=== PATIENT | male | born 1955 | race Caucasian/White ===

== ENCOUNTER 2021-09-09 01:03 | Emergency (ER) | payer MEDICARE, SELFPAY ==
--- NOTE | ~2021-09-09 | XR_ITS ---
XR chest 1V portable DATE: 09/09/2021 01:32 INDICATION: Chest pain. New onset of shortness of breath. Smoker. TECHNIQUE: Portable upright AP chest on 09/09/2021 0119 hours COMPARISON: 06/28/2018 portable AP chest at 2050 hours FINDINGS: Bilateral hyperinflation and flattening the diaphragm, consistent with COPD. No pulmonary infiltrate or consolidation is evident. No pleural effusion or pulmonary vascular conges tion or pneumothorax. Borderline heart size. Status post sternotomy and 2 cardiac valve replacements. Aortic arch calcifica tion. Diffuse osteopenia. IMPRESSION: Bilateral hyperinflation consistent with COPD Status post sternotomy and 2 cardiac valve replacements Borderline heart size Aortic calcification Reviewed, dictated and finalized at location A. R CREW MEMBER
[2021-09-09 00:58] VITALS: BP 106/80; PULSE 105; RESP 22; TEMP 36.2; O2SAT 97
--- NOTE | 2021-09-09 01:20 | ED.SOB ---
HPI - SOB/Dyspnea General Chief Complaint: Shortness of Breath/Dyspnea Stated Complaint: DIFFICULTY BREATHING COPD HX ALB 5 X Time Seen by Provider: 09/09/21 01:07 Source: patient Mode of arrival: ambulatory Limitations: no limitations History of Present Illness HPI Narrative: Patient is a 65-year-old male complaining of shortness of breath that started tonight. Patient has a history of COPD. Patient denies any chest pain, abdominal pain, nausea, vomiting, diaphoresis, fever or chills. Related Data Home Medications Medication Instructions Recorded Confirmed albuterol sulfate 90 mcg/actuation 2 inhalation INHALATION Q6H PRN 04/16/20 breath activated powder inhaler budesonide-formoterol HFA 160 2 puff INHALATION Q12H 04/16/20 mcg-4.5 mcg/actuation aerosol inhaler ergocalciferol (vitamin D2) 1,250 1,250 mcg PO WEEKLY 04/16/20 mcg (50,000 unit) capsule lisinopril 20 mg tablet 20 mg PO DAILY 04/16/20 oxycodone-acetaminophen 5 mg-325 1 tablet PO Q6H PRN 04/16/20 mg tablet tamsulosin 0.4 mg capsule 0.4 mg PO DAILY 04/16/20 tiotropium bromide 2.5 2 puff INHALATION QAM 04/16/20 mcg/actuation mist for inhalation vitamin B12 500 mcg-folic acid 400 1 tablet PO DAILY 04/16/20 mcg tablet warfarin 3 mg tablet 3 mg PO DAILY 04/16/20 warfarin 4 mg tablet 4 mg PO QTUTHSASU 04/16/20 Allergies Allergy/AdvReac Type Severity Reaction Status Date / Time aspirin Allergy Mild he cannot Verified 09/09/21 01:09 take because of blood thinners Review of Systems Review of Systems: All systems reviewed & are unremarkable except as noted in HPI and below Constitutional: Constitutional: Denies body ache(s), Denies chills, Denies excessive sweating, Denies fatigue, Denies fever(s), Denies headache(s), Denies lethargy, Denies malaise, Denies weakness and Denies weight loss Eyes: Eyes: Denies blurry vision, Denies change in vision and Denies loss of vision ENT: Denies dizziness, Denies ear discharge, Denies headache(s), Denies lip swelling, Denies epistaxis, Denies nasal congestion, Denies neck pain, Denies throat swelling and Denies tongue swelling Cardiovascular: Cardiovascular: Denies chest pain, Denies chest pain at rest, Denies chest pain with activity, Denies diaphoresis, Denies rapid heart rate, Denies edema, Denies irregular heart rhythm, Denies lightheadedness and Denies palpitations Respiratory: Respiratory: Denies chest congestion and Denies hemoptysis Gastrointestinal: Gastrointestinal: Denies abdominal pain, Denies melena, Denies hematochezia, Denies diarrhea, Denies nausea, Denies vomiting and Denies hematemesis Musculoskeletal: Musculoskeletal: Denies abnormal gait, Denies deformity, Denies joint swelling, Denies limited range of motion, Denies neck pain and Denies numbness Neurologic: Denies Abnormal speech present, Denies abnormal gait, Denies confusion, Denies dizziness, Denies headache(s), Denies focal weakness, Denies loss of vision, Denies numbness, Denies Other visual disturbances, Denies Sensory deficit (Neuro) and Denies weakness Psychiatric: Psychiatric: Denies confusion, Denies depression, Denies auditory hallucinations, Denies homicidal ideation and Denies suicidal ideation Endocrine: Endocrine: Denies cold intolerance, Denies excessive sweating, Denies fatigue, Denies heat intolerance and Denies palpitations Hematologic/Lymphatic: Hematologic/Lymphatic: Denies easy bleeding and Denies easy bruising Allergic/Immunologic: Allergic/Immunologic: Denies lip swelling, Denies throat swelling and Denies tongue swelling PMFSH Comments Past medical history: COPD, aortic valve replacement, hypertension Family history: Hypertension Social history: Positive for smoker, no EtOH or drug use Exam Const: General: alert Orientation/consciousness: patient oriented x3 Limitations: no limitations Other: Moderate distress, thin, frail HENMT: Head: normal to inspection, normocephalic and atr
[2021-09-09] MEDS: IPRATROPIUM BR 0.02% INH SOLN 0.5 MG/2.5 ML VIAL INHALATION (01:44)
[2021-09-09] MEDS: ALBUTEROL SULFATE NEB 2.5 MG/0.5 ML INH 5 MG INHALATION (01:44)
[2021-09-09 01:45] VITALS: O2SAT 94
[2021-09-09 01:52] LABS: Basophils Percent Auto 0.5 % (0.2-1.2); Eosinophils Absolute Auto 0.1 K/mm3 (0-0.3); Hematocrit 36.8 % (42.0-52.0); Hemoglobin 12.7 g/dL (14.0-18.0); Immature Granulocyte Absolute 0.03 K/mm3 (0.00-0.031); Immature Granulocyte Percent A 0.4 % (0-0.5); Lymphocytes Absolute Auto 0.78 K/mm3 (0.9-3.2); Lymphocytes Percent Auto 9.9 % (18.3-44.2); Mean Corpuscular HGB Conc 34.5 g/dl (32-36); Mean Corpuscular Hemoglobin 30.8 pg (26-34); Mean Corpuscular Volume 89.3 fl (80-100); Mean Platelet Volume 9.1 fl (7.4-10.4); Monocytes Absolute Auto 0.7 K/mm3 (0.1-0.6); Monocytes Percent Auto 8.6 % (2.6-8.5); Neutrophils Absolute Auto 6.3 K/mm3 (1.3-6.7); Neutrophils Percent Auto 79.6 % (45.5-73.1); Platelet Count Result 198 k/mm3 (150-375); Red Blood Count 4.12 M/mm3 (4.6-6.20); White Blood Count 7.9 K/mm3 (4.5-10.0)
[2021-09-09 01:56] VITALS: PULSE 95; RESP 23
[2021-09-09 02:02] LABS: INR 3.1
[2021-09-09 02:05] LABS: Alveolar/Arterial O2 Gradient 44.8 mmHg; Base Excess ABG -1.9 mEq/l (+/-2.0); Carboxyhemoglobin 3.1 % THb (0-2.0); Fractional Inspired Oxygen 21 %; HCO3 ABG 22.1 mEq/l (22.0-26.0); Methemoglobin ABG 0.2 %THb (0-1.5); Oxygen Content ABG 16.7 %vol (16.0-22.0); Oxygen Saturation ABG 92.4 % (95.0-100.0); PCO2 ABG 35.5 mmHg (35.0-45.0); PO2 ABG 62.4 mmHg (80.0-100.0); PO2 FiO2 Ratio Arterial Blood 2.97 %; Reduced Hemoglobin 8.8 %THb (0-5.0); Total Hemoglobin 13.5 g/dL (12.0-18.0); pH ABG 7.412 (7.350-7.450)
[2021-09-09 02:06] VITALS: PULSE 81; RESP 23
[2021-09-09 02:06] LABS: Device ROOM AIR; Modified Allen's Test Pass; Oxyhemoglobin 87.9 % THb (90.0-100.0); Site Drawn RIGHT RADIAL
[2021-09-09 02:07] LABS: Alanine Aminotransferase 21 U/L (4-50); Albumin Level 4.5 g/dL (3.5-5.1); Alkaline Phosphatase 116 U/L (38-126); Anion Gap 11 mmol/L (8-16); Aspartate Amino Transferase 48 U/L (17-59); Bilirubin,Total 0.8 mg/dL (0.2-1.3); Blood Urea Nitrogen 8 mg/dL (9-20); Carbon Dioxide 24 mmol/L (22-30); Chloride 91 mmol/L (98-107); Estimated Glomerular Filt Rate > 60; Glucose 118 mg/dL (65-110); Potassium 3.5 mmol/L (3.4-5.0); Sodium 126 mmol/L (137-145)
[2021-09-09 02:14] LABS: NT Pro B Type Natriuretic Pept 2180 pg/mL (5-100)
[2021-09-09 02:18] LABS: Troponin I < 0.012 ng/mL (0.000-0.034)
--- NOTE | 2021-09-09 03:00 | ECG_ITS ---
Measurements Intervals [place] Rate: 91 P: [place]: 0 QRS: 88 QRSD: 109 T: 11 QT: 409 QTc: 506 Interpretive Statements ATRIAL FIBRILLATION BORDERLINE ST-T WAVE ABNORMALITY- INFERIOR LEADS BASELINE ARTIFACT- I, II, III, AVR, AVL, AVF, V1-V6 ABNORMAL ECG Electronically Signed On 09-09-2021 6:28:50 SAND MIXER OPERATOR by Sanjay Guevara D.O.
[2021-09-09 04:04] VITALS: BP 101/68; PULSE 88; RESP 17; O2SAT 92
== END 2021-09-09 03:55 | disposition home or self-care (01) ==
PROVIDERS: Emergency Provider Emergency Medicine; PCP Family Medicine
DX: J44.1 Chronic obstructive pulmonary disease with (acute) exacerbation (principal); I10 Essential (primary) hypertension; Z95.2 Presence of prosthetic heart valve; Z79.01 Long term (current) use of anticoagulants; I48.91 Unspecified atrial fibrillation; R94.31 Abnormal electrocardiogram [ECG] [EKG]
CPT/HCPCS: 36415; 36600; 71045; 80053; 82375; 82805; 83050; 83880; 84484; 85025; 85610; 85730; 87804; 93005; 94640; 96374; 99284; J1100

== ENCOUNTER 2021-09-23 06:30 | Emergency (ER) | payer MEDICARE, SELFPAY ==
[2021-09-23] VITALS (45 sets, daily range): BP systolic 85–113; BP diastolic 55–91; PULSE 97–139; RESP 15–35; TEMP 36.2–36.4; O2SAT 94–100
--- NOTE | ~2021-09-23 | XR_ITS ---
XR chest 1V portable DATE: 09/23/2021 07:45 INDICATION: Shortness of breath. History of COPD. TECHNIQUE: Portable upright AP chest COMPARISON: 09/09/2021 portable AP chest FINDINGS: Status post sternotomy and multiple cardiac valve replacements. There is pulmonary vascular congestion and redistribution. There are Monica B-lines and mild prominen ce of the minor fissure suggesting pulmonary interstitial and subpleural edema. Bilateral hyperinflation with relative flattening the diaphragm consistent with clinical diagnosis of COPD. No pleural effusion or pneumothorax is evident. Aortic calcification. Diffuse osteopenia. IMPRESSION: Pulmonary vascular congestion and pulmonary interstitial and subpleural edema Bilateral hyperinflation consistent with COPD Reviewed, dictated and finalized at location A. OYEE'S REPRESENTATIVE IMPRESSION: Pulmonary vascular congestion and pulmonary interstitial and subple ural edema Bilateral hyperinflation consistent with COPD
--- NOTE | 2021-09-23 06:41 | ECG_ITS ---
Measurements Intervals [place] Rate: 126 P: [place]: 0 QRS: 83 QRSD: 103 T: -35 QT: 304 QTc: 441 Interpretive Statements ATRIAL FIBRILLATION WITH RAPID VENTRICULAR RESPONSE VENTRICULAR COUPLET AND VENTRICULAR PREMATURE COMPLEX BORDERLINE ST-T WAVE ABNORMALITY- INFERIOR LEADS ABNORMAL ECG Electronically Signed On 09-23-2021 7:25:43 NURSE PRACTICAL by Sanjay Guevara D.O.
[2021-09-23] MEDS: SODIUM CHLORIDE 0.9% IV 1,000 ML 999 ML IV CONT (07:02)
[2021-09-23 07:10] LABS: Basophils Percent Auto 0.3 % (0.2-1.2); Eosinophils Absolute Auto 0.1 K/mm3 (0-0.3); Eosinophils Percent Auto 0.5 % (0-4.4); Hematocrit 36.5 % (42.0-52.0); Hemoglobin 12.6 g/dL (14.0-18.0); Immature Granulocyte Percent A 0.7 % (0-0.5); Lymphocytes Percent Auto 4.1 % (18.3-44.2); Mean Corpuscular HGB Conc 34.5 g/dl (32-36); Mean Corpuscular Hemoglobin 31.1 pg (26-34); Mean Corpuscular Volume 90.1 fl (80-100); Mean Platelet Volume 9.2 fl (7.4-10.4); Monocytes Absolute Auto 1.1 K/mm3 (0.1-0.6); Monocytes Percent Auto 7.2 % (2.6-8.5); Neutrophils Absolute Auto 12.9 K/mm3 (1.3-6.7); Neutrophils Percent Auto 87.2 % (45.5-73.1); Platelet Count Result 218 k/mm3 (150-375); Red Blood Count 4.05 M/mm3 (4.6-6.20); Red Cell Distribution Width 12.7 % (11.5-14.5); White Blood Count 14.8 K/mm3 (4.5-10.0)
--- NOTE | 2021-09-23 07:13 | ED.GENADULT ---
HPI - General Adult General Chief complaint: Shortness of Breath/Dyspnea Stated complaint: SOB Time Seen by Provider: 09/23/21 06:52 Source: patient, family and RN notes reviewed Limitations: no limitations History of Present Illness HPI narrative: 65-year-old male with history of COPD presents to the emergency department complaining of worsening shortness of breath. Patient states that last night he suspects that he slept too low in his chair and he woke up lying flat which worsened his shortness of breath. Patient does not appear to be in any shortness of breath. Patient states that he feels significantly improved compared to when he was at home. Patient does have a cough that he states is at his baseline. Patient does have a hoarse voice which he states is at his baseline. Patient states he has been compliant with his medications recently. Patient denies missing any doses. Patient states that his Lasix prescription was set to run out later this week but he already called the pharmacy and has a refill pending. Related Data Home Medications Medication Instructions Recorded Confirmed albuterol sulfate 90 mcg/actuation See Rx Instructions .ROUTE 04/16/20 breath activated powder inhaler .COMPLEX PRN budesonide-formoterol HFA 160 2 puff INHALATION Q12H 04/16/20 mcg-4.5 mcg/actuation aerosol inhaler oxycodone-acetaminophen 5 mg-325 1 tablet PO DAILY PRN 04/16/20 mg tablet tamsulosin 0.4 mg capsule 0.4 mg PO DAILY 04/16/20 tiotropium bromide 2.5 2 puff INHALATION QAM 04/16/20 mcg/actuation mist for inhalation vitamin B12 500 mcg-folic acid 400 1 tablet PO DAILY 04/16/20 mcg tablet warfarin 3 mg tablet 3 mg PO DAILY 04/16/20 warfarin 4 mg tablet 4 mg PO QTUTHSASU 04/16/20 diltiazem HCl [Cardizem CD] 240 mg PO HS 09/23/21 furosemide 20 mg PO BID 09/23/21 lisinopril 5 mg PO DAILY 09/23/21 magnesium oxide 400 mg PO DAILY 09/23/21 metoprolol succinate 100 mg PO HS 09/23/21 09/23/21 prednisone 40 mg PO DAILY 09/23/21 Allergies Allergy/AdvReac Type Severity Reaction Status Date / Time aspirin Allergy Mild he cannot Verified 09/23/21 06:43 take because of blood thinners Review of Systems Review of Systems: CONSTITUTIONAL: Denies fever, chills, or sweats. EYES: Denies visual changes, redness, or discharge. ENT: Denies rhinorrhea, congestion, sore throat, or otalgia. CARDIOVASCULAR: Denies chest pain, palpitations, or edema. RESPIRATORY: Cough and shortness of breath, was worse at home but now he states he is close to his baseline. GASTROINTESTINAL: Denies abdominal pain, nausea, vomiting, or diarrhea. GENITOURINARY: Denies dysuria or hematuria. SKIN: Denies rash or itching. MUSCULOSKELETAL: Denies back pain, joint pain, or myalgia. NEUROLOGIC: Denies headache, numbness, or weakness. PSYCHIATRIC: Denies anxiety or depression. Exam Narrative: APPEARANCE: Well appearing, no pain, no distress, well-nourished. HEAD: normocephalic, atraumatic. EYES: PERRLA/EOMI, conjunctivae clear. NOSE: Normal no drainage THROAT: Pharynx clear, no exudate. NECK: Supple. No adenopathy, no masses. RESPIRATORY: Wheeze and rhonchi bilaterally CARDIOVASCULAR: Tachycardic and rhythm without murmurs rubs or gallops. ABDOMINAL: Soft, nontender, nondistended, normal bowel sounds MUSCULOSKELETAL: Moves all extremities. Strength/ROM intact, bilateral edema, No calf tenderness. NEURO: Alert. Cranial nerves II through XII intact. Good gait. Good coordination SKIN: Warm, dry. Normal Color Course Course Emergency Course: 65-year-old male history of COPD presented to the emergency department for evaluation of shortness of breath. Patient is tachycardic into the mid 120s after his breathing treatments. Patient states he does feel improved. Patient is resting comfortably in time. Patient was updated on the plan for labs. Given patient a liter of normal saline to help with tachycardia. Patient's BNP came back elevat
[2021-09-23 07:27] LABS: Partial Thromboplastin Time 56.4 SECONDS (22.3-36.8); Prothrombin Time 45.3 Seconds (11.1-14.7)
[2021-09-23 07:29] LABS: NT Pro B Type Natriuretic Pept 1920 pg/mL (5-100)
--- NOTE | 2021-09-23 07:39 | PCRCNOTE ---
Attempt ABG three times. Unable to obtain specimen. Physician notified.
[2021-09-23 07:48] LABS: Alanine Aminotransferase 23 U/L (4-50); Albumin Level 3.9 g/dL (3.5-5.1); Alkaline Phosphatase 142 U/L (38-126); Anion Gap 6 mmol/L (8-16); Aspartate Amino Transferase 44 U/L (17-59); Bilirubin,Total 0.9 mg/dL (0.2-1.3); Blood Urea Nitrogen 12 mg/dL (9-20); Calcium 8.6 mg/dL (8.4-10.2); Carbon Dioxide 27 mmol/L (22-30); Chloride 95 mmol/L (98-107); Estimated Glomerular Filt Rate > 60; Glucose 118 mg/dL (65-110); Magnesium 1.8 mg/dL (1.6-2.3); Potassium 4.3 mmol/L (3.4-5.0); Sodium 128 mmol/L (137-145)
[2021-09-23] MEDS: methylPREDNISolone SOD SUCC 125 MG VIAL IV PUSH (07:48)
[2021-09-23 07:50] LABS: INR 5.1
[2021-09-23] MEDS: FUROSEMIDE INJ 40 MG/4 ML VIAL IV PUSH (08:57)
[2021-09-23] MEDS: METOPROLOL SUCCINATE EXT REL 100 MG TABCR PO (08:57)
[2021-09-23 09:55] LABS: SARS-CoV-2 RNA PCR Negative
== END 2021-09-23 12:10 | disposition home or self-care (01) ==
PROVIDERS: General Practice; Emergency Provider Emergency Medicine; PCP Family Medicine
DX: R06.00 Dyspnea, unspecified (principal); E87.70 Fluid overload, unspecified; Z20.822 Contact with and (suspected) exposure to COVID-19; J44.9 Chronic obstructive pulmonary disease, unspecified; Z79.01 Long term (current) use of anticoagulants
CPT/HCPCS: 36415; 71045; 80053; 83735; 83880; 85025; 85610; 85730; 87040; 93005; 96361; 96374; 96375; 99284; A9270; C9803; J1940; J2930; J7030; U0003; U0005

== ENCOUNTER 2021-09-25 21:29 | Inpatient (IN) | payer MEDICARE, SELFPAY ==
[2021-09-25] VITALS (17 sets, daily range): BP systolic 90–110; BP diastolic 51–85; PULSE 89–165; RESP 22–35; TEMP 37.1; O2SAT 94–98
--- NOTE | ~2021-09-25 | XR_ITS ---
EXAMINATION: XR chest 1V portable EXAM DATE: 09/29/2021 06:08 INDICATION: SOB TECHNIQUE: Portable AP frontal chest x-ray was obtained. Comparison is made to prior examination from 09/25/2021. FINDINGS: Sternotomy wires are present without findings to suggest sternal dehiscence. Cardiac valve replacement, probably the aortic valve. The lungs are hyperinflated which can be seen with chronic ob structive pulmonary disease (a clinical diagnosis of functional impairment), but is not diagnostic of it. Cardiac silhouette is enlarged but stable in size compared to prior exam. There is pulmonary vas cular congestion. There is indistinct reticulation with a bibasal predominance which may indicate pul monary edema. There is aortic arteriosclerosis. Dense mitral annular calcifications. IMPRESSION: 1. Cardiomegaly, congestion, possible mild pulmonary edema. 2. Chronic hyperinflation. Reviewed, dictated and finalized at location A. CHECKER
--- NOTE | ~2021-09-25 | XR_ITS ---
EXAMINATION: XR chest 1V portable INDICATION: Cough and shortness of breath TECHNIQUE: Portable AP chest at 2144 hours COMPARISON: 09/23/2021 FINDINGS: Cardiomegaly is noted. There are changes of cardiac valve surgery. A mild diffuse interstit ial pattern is present. There is no pleural effusion or pneumothorax. IMPRESSION: 1. Cardiomegaly with mild pulmonary edema. Reviewed, dictated and finalized at location F. E MILL MILL HAND
--- NOTE | 2021-09-25 21:38 | ECG_ITS ---
Measurements Intervals [place] Rate: 127 P: [place]: 0 QRS: 75 QRSD: 96 T: -58 QT: 305 QTc: 445 Interpretive Statements ATRIAL FIBRILLATION WITH RAPID VENTRICULAR RESPONSE VENTRICULAR TRIPLET MINIMAL Q WAVES- INFERIOR LEADS ST-T WAVE ABNORMALITY IN INFERIOR LEADS- CONSIDER ISCHEMIA BASELINE ARTIFACT- I, II, III, AVR, AVL, AVF ABNORMAL ECG Electronically Signed On 09-26-2021 20:14:23 ON CALL PHARMACY TECHNICIAN by Sanjay Guevara D.O.
--- NOTE | 2021-09-25 21:58 | ED.SOB ---
HPI - SOB/Dyspnea General Chief Complaint: Shortness of Breath/Dyspnea Stated Complaint: dyspnea Time Seen by Provider: 09/25/21 21:37 Source: RN notes reviewed History of Present Illness HPI Narrative: Patient presents emergency department from home via EMS for shortness of breath. Patient states symptoms began proximally 45 minutes prior to arrival and he states he became more severely short of breath states that time he took a total of 4 of his breathing treatments at home states he has a history of COPD as well as A. fib and CHF and is on Coumadin he states he has had a cough this been nonproductive he denies any fevers or chills chest pain abdominal pain or any other symptoms Related Data Home Medications Medication Instructions Recorded Confirmed albuterol sulfate 90 mcg/actuation See Rx Instructions .ROUTE 04/16/20 breath activated powder inhaler .COMPLEX PRN budesonide-formoterol HFA 160 2 puff INHALATION Q12H 04/16/20 mcg-4.5 mcg/actuation aerosol inhaler oxycodone-acetaminophen 5 mg-325 1 tablet PO DAILY PRN 04/16/20 mg tablet tamsulosin 0.4 mg capsule 0.4 mg PO DAILY 04/16/20 tiotropium bromide 2.5 2 puff INHALATION QAM 04/16/20 mcg/actuation mist for inhalation vitamin B12 500 mcg-folic acid 400 1 tablet PO DAILY 04/16/20 mcg tablet warfarin 3 mg tablet 3 mg PO DAILY 04/16/20 warfarin 4 mg tablet 4 mg PO QTUTHSASU 04/16/20 diltiazem HCl [Cardizem CD] 240 mg PO HS 09/23/21 furosemide 20 mg PO BID 09/23/21 lisinopril 5 mg PO DAILY 09/23/21 magnesium oxide 400 mg PO DAILY 09/23/21 metoprolol succinate 100 mg PO HS 09/23/21 09/23/21 prednisone 40 mg PO DAILY 09/23/21 Allergies Allergy/AdvReac Type Severity Reaction Status Date / Time aspirin Allergy Mild he cannot Verified 09/25/21 21:39 take because of blood thinners Review of Systems Review of Systems: Gen.: Denies fevers or chills ENT: Denies congestion Respiratory: See HPI CV: Denies chest pain or palpitations GI: Denies abdominal pain nausea, emesis or diarrhea Musculoskeletal: Denies back pain or muscle pain Neuro: Denies numbness, tingling, weakness or focal weakness Skin: Denies rash Except as documented, all other systems reviewed and negative [facility] Past Medical History Medical History (Updated 09/25/21 @ 23:31 by Ritesh Landin DO) Atrial fibrillation COPD (chronic obstructive pulmonary disease) Social History Social History (Updated 09/25/21 @ 23:21 by Ritesh Landin DO) Smoking status: Former smoker Exam Narrative: APPEARANCE: Moderate respiratory distress sitting upright in bed EYES: EOMI HEENT: Normocephalic, atraumatic, OMM RESPIRATORY: Moderate respiratory distress sitting upright in bed speaking in short phrases wheezing throughout the bilateral lung sinha CARDIOVASCULAR: Tachycardic and regular ABDOMINAL: Soft, nontender, nondistended, no rebound or guarding MUSCULOSKELETAl: Moves all extremities. No clubbing, cyanosis or edema. NEURO: Awake and alert. Following commands, speech normal, no focal deficits SKIN:: Warm, dry. No rashes lesions or abrasions PSYCHIATRIC: Normal affect/mood, Course Course Emergency Course: Reviewed old records the patient has been seen twice this month for similar complaints patient was here 2 days ago he received Solu-Medrol that time Patient's breathing has improved started on Cardizem for his atrial fibrillation he states he did take all of his medications today Called discussed with Dr. Bentley agrees with consult recommends patient receive vitamin K 2.5 mg at this time Discussed with Dr. Tolentino presentation work-up agrees with admission at this time Discussed with patient and family results of workup and diagnosis. Discussed need for admission. Patient and family understand and agree to current treatment plan Vital Signs Vital signs: Vital Signs Temperature 98.7 F 09/25/21 21:29 Pulse Rate 127 H 09/25/21 21:29 Respiratory
[2021-09-25 21:59] LABS: Basophils Percent Auto 0.2 % (0.2-1.2); Eosinophils Percent Auto 0.2 % (0-4.4); Hematocrit 34.7 % (42.0-52.0); Hemoglobin 11.8 g/dL (14.0-18.0); Immature Granulocyte Absolute 0.11 K/mm3 (0.00-0.031); Immature Granulocyte Percent A 0.7 % (0-0.5); Lymphocytes Absolute Auto 0.95 K/mm3 (0.9-3.2); Lymphocytes Percent Auto 5.9 % (18.3-44.2); Mean Corpuscular Hemoglobin 30.4 pg (26-34); Mean Corpuscular Volume 89.4 fl (80-100); Mean Platelet Volume 8.9 fl (7.4-10.4); Monocytes Absolute Auto 1.4 K/mm3 (0.1-0.6); Monocytes Percent Auto 8.3 % (2.6-8.5); Neutrophils Absolute Auto 13.8 K/mm3 (1.3-6.7); Neutrophils Percent Auto 84.7 % (45.5-73.1); Platelet Count Result 247 k/mm3 (150-375); Red Blood Count 3.88 M/mm3 (4.6-6.20); Red Cell Distribution Width 12.8 % (11.5-14.5); White Blood Count 16.2 K/mm3 (4.5-10.0)
[2021-09-25] MEDS: methylPREDNISolone SOD SUCC 125 MG VIAL IV PUSH (22:00)
[2021-09-25 22:09] LABS: Partial Thromboplastin Time 50.7 SECONDS (22.3-36.8); Prothrombin Time 57.6 Seconds (11.1-14.7)
[2021-09-25 22:12] LABS: Alanine Aminotransferase 31 U/L (4-50); Albumin Level 4.1 g/dL (3.5-5.1); Alkaline Phosphatase 135 U/L (38-126); Anion Gap 8 mmol/L (8-16); Aspartate Amino Transferase 48 U/L (17-59); Blood Urea Nitrogen 19 mg/dL (9-20); Calcium 8.8 mg/dL (8.4-10.2); Carbon Dioxide 30 mmol/L (22-30); Chloride 92 mmol/L (98-107); Estimated CRCL calculation 56 ml/min; Estimated Glomerular Filt Rate > 60; Glucose 135 mg/dL (65-110); Potassium 3.5 mmol/L (3.4-5.0); Sodium 130 mmol/L (137-145)
[2021-09-25 22:24] LABS: Alveolar/Arterial O2 Gradient 98.6 mmHg; Base Excess ABG 4.5 mEq/l (+/-2.0); Device NASAL CANNULA; Fractional Inspired Oxygen 28 %; HCO3 ABG 28.2 mEq/l (22.0-26.0); Modified Allen's Test Pass; Oxygen Content ABG 15.3 %vol (16.0-22.0); Oxyhemoglobin 88.7 % THb (90.0-100.0); PCO2 ABG 38.6 mmHg (35.0-45.0); PO2 ABG 55.5 mmHg (80.0-100.0); PO2 FiO2 Ratio Arterial Blood 1.98 %; Site Drawn RIGHT RADIAL; Total Hemoglobin 12.3 g/dL (12.0-18.0); pH ABG 7.481 (7.350-7.450)
[2021-09-25 22:24] LABS: NT Pro B Type Natriuretic Pept 2210 pg/mL (5-100); Troponin I 0.016 ng/mL (0.000-0.034)
[2021-09-25] MEDS: dilTIAZem 100 MG/100 ML 100 MG/100 ML BAG IV CONT (22:40)
[2021-09-25] MEDS: PHYTONADIONE INJ 10 MG/ML AMP 2.5 MG SUB-Q (23:07)
[2021-09-25 23:23] LABS: SARS-CoV-2 RNA PCR Negative
--- NOTE | 2021-09-25 23:25 | PM.IMHP ---
H&P: HPI History of Present Illness Date/Time: 09/25/21 23:25 Chief Complaint: Shortness of breath Narrative: This is a 65-year-old male with past medical history significant for COPD/emphysema, chronic hypoxic respiratory failure, valve replacement, throat cancer, tobacco dependence, patient still an everyday smoker is states that he smokes 1 pack of cigarettes a week, atrial fibrillation anticoagulated and rate controlled, congestive heart failure. Patient presented to emergency room due to worsening shortness of breath, wheezing, chest congestion, persistent dry cough, voice change,s was supposed to see his ENT in the outpatient setting as well but ended up coming to the hospital due to worsening shortness of breath, patient denies any fevers, any rigors, any chills, any nausea, vomiting ,abdominal pain, diarrhea, no chest pain, has bilateral lower extremity swelling. Preliminary workup was significant for INR of 7, brain natriuretic peptide 2000, WBC 16,000. Patient has been admitted for further evaluation management and treatment Review of Systems Review of Systems: Shortness of breath, wheezing, bilateral lower extremity swelling Constitutional: Constitutional: Denies chills, Reports difficulty sleeping, Reports fatigue, Denies fever(s), Denies night sweats, Reports poor appetite and Reports weakness Eyes: Eyes: Denies change in vision ENT: Reports change in voice, Reports dysphagia, Denies nasal congestion, Denies nasal discharge, Denies nasal obstruction and Denies odynophagia Cardiovascular: Cardiovascular: Denies chest pain, Reports pedal edema, Reports leg edema, Denies lightheadedness, Denies radiating jaw, neck or arm pain, Denies palpitations, Reports dyspnea, Reports dyspnea on exertion and Reports orthopnea Respiratory: Respiratory: Reports chest congestion, Reports cough, Denies hemoptysis, Denies excessive phlegm production, Reports dyspnea, Reports dyspnea on exertion and Reports wheezing Gastrointestinal: Gastrointestinal: Denies abdominal pain, Denies dyspepsia, Denies heartburn, Denies diarrhea, Denies nausea and Denies vomiting Genitourinary: Genitourinary: Reports no additional male genitourinary complaints and Reports as per HPI Musculoskeletal: Musculoskeletal: Denies arthralgias Integumentary/Breasts: Skin/Breast: Denies rash Neurologic: Denies focal weakness and Denies Sensory deficit (Neuro) Endocrine: Endocrine: Denies cold intolerance, Denies excessive sweating, Denies heat intolerance, Denies polyphagia, Denies polydipsia and Denies palpitations Hematologic/Lymphatic: Hematologic/Lymphatic: Reports no additional hematologic/lymphatic complaints and Reports as per HPI Allergic/Immunologic: Allergic/Immunologic: Reports no additional allergic/immunologic complaints and Reports as per HPI [facility] Past Medical History Medical History (Updated 09/26/21 @ 05:23 by Jodie Willis MD) Atrial fibrillation COPD (chronic obstructive pulmonary disease) Social History Social History (Updated 09/25/21 @ 23:21 by Ritesh Landin DO) Smoking status: Former smoker Meds Home Medications and Allergies Home Medications Medication Instructions Recorded Confirmed Type albuterol sulfate 90 mcg/actuation See Rx Instructions .ROUTE 04/16/20 History breath activated powder inhaler .COMPLEX PRN budesonide-formoterol HFA 160 2 puff INHALATION Q12H 04/16/20 History mcg-4.5 mcg/actuation aerosol inhaler oxycodone-acetaminophen 5 mg-325 1 tablet PO DAILY PRN 04/16/20 History mg tablet tamsulosin 0.4 mg capsule 0.4 mg PO DAILY 04/16/20 History tiotropium bromide 2.5 2 puff INHALATION QAM 04/16/20 History mcg/actuation mist for inhalation vitamin B12 500 mcg-folic acid 400 1 tablet PO DAILY 04/16/20 History mcg tablet warfarin 3 mg tablet 3 mg PO DAILY 04/16/20 History warfarin 4 mg tablet 4 mg PO QTUTHSASU 04/16/20 History ipratropium-albuterol 3 ml INHALATION Q6H PRN #90 ml
[2021-09-26] VITALS (90 sets, daily range): BP systolic 94–124; BP diastolic 50–94; PULSE 68–93; RESP 15–35; TEMP 36.3–36.7; O2SAT 91–98; BMI 24.0
[2021-09-26 01:07] LABS: Hepatitis B Surface Antigen Negative (Negative)
[2021-09-26 01:24] LABS: HIV 1/2 Ab P24 Ag Result Negative (Negative); Hepatitis C Virus Antibody Reactive (Negative)
[2021-09-26] MEDS: IPRATROPIUM BR 0.02% INH SOLN 0.5 MG/2.5 ML VIAL INHALATION ×3 (02:16→21:21)
[2021-09-26] MEDS: LEVALBUTEROL NEB 1.25 MG/3 ML 0.63 MG INHALATION ×3 (02:17→21:21)
[2021-09-26 05:52] LABS: Hemoglobin 11.2 g/dL (14.0-18.0); Immature Granulocyte Absolute 0.04 K/mm3 (0.00-0.031); Immature Granulocyte Percent A 0.5 % (0-0.5); Lymphocytes Absolute Auto 0.23 K/mm3 (0.9-3.2); Lymphocytes Percent Auto 2.6 % (18.3-44.2); Mean Corpuscular HGB Conc 33.9 g/dl (32-36); Mean Corpuscular Hemoglobin 30.4 pg (26-34); Mean Corpuscular Volume 89.7 fl (80-100); Mean Platelet Volume 8.8 fl (7.4-10.4); Monocytes Absolute Auto 0.1 K/mm3 (0.1-0.6); Monocytes Percent Auto 1.3 % (2.6-8.5); Neutrophils Absolute Auto 8.4 K/mm3 (1.3-6.7); Neutrophils Percent Auto 95.6 % (45.5-73.1); Platelet Count Result 203 k/mm3 (150-375); Red Blood Count 3.68 M/mm3 (4.6-6.20); Red Cell Distribution Width 12.8 % (11.5-14.5); White Blood Count 8.7 K/mm3 (4.5-10.0)
[2021-09-26] MEDS: methylPREDNISolone SOD SUCC 125 MG VIAL 60 MG IV PUSH ×3 (06:06→21:13)
[2021-09-26 06:10] LABS: Troponin I 0.021 ng/mL (0.000-0.034)
[2021-09-26 07:51] LABS: Helmet Cells 1+ (NORMAL); Ovalocytes 1+ (NORMAL); Platelet Estimate Adequate (Adequate)
[2021-09-26 07:52] LABS: Acanthocytes 2+ (NORMAL); Schistocytes 1+ (NORMAL)
[2021-09-26 09:46] LABS: Alanine Aminotransferase 30 U/L (4-50); Albumin Level 3.7 g/dL (3.5-5.1); Alkaline Phosphatase 115 U/L (38-126); Anion Gap 6 mmol/L (8-16); Aspartate Amino Transferase 46 U/L (17-59); Bilirubin,Total 1.2 mg/dL (0.2-1.3); Blood Urea Nitrogen 17 mg/dL (9-20); Carbon Dioxide 27 mmol/L (22-30); Chloride 98 mmol/L (98-107); Estimated CRCL calculation 90 ml/min; Estimated Glomerular Filt Rate > 60; Glucose 137 mg/dL (65-110); Potassium 4.4 mmol/L (3.4-5.0); Sodium 131 mmol/L (137-145)
--- NOTE | 2021-09-26 12:27 | PM.CNCAR ---
Assessment and Plan Assessment and plan (1) Atrial fibrillation with rapid ventricular response: Code(s): I48.91 - Unspecified atrial fibrillation Status: Acute Assessment and Plan: This apparently is a new diagnosis for him. It was recognized a couple of days ago whenever he was here at an ER visit. He is already on warfarin because of his mechanical mitral and aortic valve replacement. His acute rapid ventricular response was likely secondary to nebulizer treatments. He is currently very well rate controlled. Will discontinue his diltiazem drip. His home dose of diltiazem and metoprolol should be resumed and I think his heart rate will be very easily controlled with simple resumption of his home regimen. He does have a supratherapeutic INR at this point. Warfarin is on hold. (2) COPD with acute exacerbation: Code(s): J44.1 - Chronic obstructive pulmonary disease with (acute) exacerbation Status: Acute Assessment and Plan: Steroids, nebs and antibiotics (3) Supratherapeutic INR: Code(s): R79.1 - Abnormal coagulation profile Status: Acute Assessment and Plan: 2.5 mg of subQ vitamin are given. No more vitamin K unless he starts to have any bleeding issues should be given given his mechanical mitral valve replacement. Stat INR drawn today. Hold warfarin for now. 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 2D echocardiogram Doppler will be ordered (5) Status post mitral valve replacement: Code(s): Z95.2 - Presence of prosthetic heart valve Status: Acute (6) Tobacco dependence: Code(s): F17.200 - Nicotine dependence, unspecified, uncomplicated Status: Acute Assessment and Plan: Ongoing despite significant COPD, history of throat cancer (7) CHF (congestive heart failure): Code(s): I50.9 - Heart failure, unspecified Status: Acute Assessment and Plan: Probably acute systolic heart failure. Unknown details. Follows with Dr. Hutson. Will check a 2D echocardiogram with Doppler. Furosemide 20 mg p.o. b.i.d. continue home dose lisinopril, metoprolol History of Present Illness History of Present Illness Consult date/time: 09/26/21 12:27 Requesting physician: Ritesh Landin, DO Consult reason: atrial fibrillation Reason For Visit: A Fib w/RVR, AE COPD, CHF Narrative: Reason consultation: Supratherapeutic INR, atrial fibrillation, shortness of breath Date of consultation 09/26/2021 Requesting provider: Dr. Landin History patient is a 65-year-old male who has a history of COPD/emphysema, throat cancer, chronic hypoxic respiratory failure, mitral and aortic valve replacements, ongoing tobacco use, atrial fibrillation, chronic anticoagulation and heart failure who presented to the hospital with acute onset of worsening shortness of breath. Patient states that he when out for couple of beers. He came home and became short of breath and has some chest heaviness. He took a nebulizer which did improve his symptoms temporarily but then his symptoms came back significantly. They progressed to the point that he needed to come to the hospital for further workup evaluation. He has been boardering in the ER. He was found to be in atrial fibrillation and he is unaware of this diagnosis. His INR was supratherapeutic over 7. He states that the steroids have helped him breathe. He had symptoms of shortness of breath and heaviness for about 2-3 hours he states. He has ruled out for myocardial infarction but BNP is elevated over 2000. He has presented to the emergency department at least 4 times in the past couple months because of similar symptoms. Review of Systems Review of Systems: All systems reviewed & are unremar
[2021-09-26 12:53] LABS: Prothrombin Time 51.2 Seconds (11.1-14.7)
--- NOTE | 2021-09-26 14:12 | PM.IMPN ---
Progress Note: A&P Assessment and Plan (1) COPD with acute exacerbation: Code(s): J44.1 - Chronic obstructive pulmonary disease with (acute) exacerbation Status: Acute Assessment and Plan: Admit to IMU Supplemental oxygen Systemic steroids Breathing treatment Will start levofloxacin Supportive care 09/26/2021 Interval history: patient with history of throat cancer, upon arrival patient was in atrial fibrillation with RVR this was a new diagnosis for the patient seen by directory carrier suspect is was triggered by albuterol nebulizer, initially patient was placed on diltiazem drip cardiology DC the drip and resume patient home dose of diltiazem and metoprolol and rate is trending, patient with history of COPD unfortunately still smoking and was in exacerbation started the patient on methylprednisone and Xopenex, patient states feeling much better compared to when he arrived, patient with history mechanical mitral and aortic valve patient anticoagulated with warfarin, upon arrival patient INR was supratherapeutic warfarin was placed on hold, will continue to monitor and further recommendation to follow. 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 - Paralysis of vocal cords and larynx, unilateral Status: Acute Assessment and Plan: Unchanged (6) Tobacco dependence: Code(s): F17.200 - Nicotine dependence, unspecified, uncomplicated Status: Acute Assessment and Plan: Nicotine patch as needed Subjective Date/time seen: 09/26/21 14:12 Chief Complaint: Shortness of breath Narrative: This is a 65-year-old male with past medical history significant for COPD/emphysema, chronic hypoxic respiratory failure, valve replacement, throat cancer, tobacco dependence, patient still an everyday smoker is states that he smokes 1 pack of cigarettes a week, atrial fibrillation anticoagulated and rate controlled, congestive heart failure. Patient presented to emergency room due to worsening shortness of breath, wheezing, chest congestion, persistent dry cough, voice change,s was supposed to see his ENT in the outpatient setting as well but ended up coming to the hospital due to worsening shortness of breath, patient denies any fevers, any rigors, any chills, any nausea, vomiting ,abdominal pain, diarrhea, no chest pain, has bilateral lower extremity swelling. Preliminary workup was significant for INR of 7, brain natriuretic peptide 2000, WBC 16,000. Patient has been admitted for further evaluation management and treatment 09/26/2021 Interval history: patient with history of throat cancer, upon arrival patient was in atrial fibrillation with RVR this was a new diagnosis for the patient seen by directory carrier suspect is was triggered by albuterol nebulizer, initially patient was placed on diltiazem drip cardiology DC the drip and resume patient home dose of diltiazem and metoprolol and rate is trending, patient with history of COPD unfortunately still smoking and was in exacerbation started the patient on methylprednisone and Xopenex, patient states feeling much better compared to when he arrived, patient with history mechanical mitral and aortic valve patient anticoagulated with warfarin, upon arrival patient INR was supratherapeutic warfarin was placed on hold, will continue to monitor and further recommendation to follow. Review of Systems Review
--- NOTE | 2021-09-26 15:46 | PC.NURSE ---
This patient, Lemuel Herrera, was admitted to IMU Room 214-01. Patient/family oriented to hospital policies and general routines including ID bracelet, bed and alarms, visiting hours, pain management, procedures, bathroom and other care routines, personal items, smoking policy, room service/diet, and visiting hours. Information on how to activate the Rapid Response Team has been discussed. Patient/Family are encouraged to report perceived risks to care and to ask questions if they do not understand what they are told or what they should do.
[2021-09-26] MEDS: FUROSEMIDE 20 MG TABLET PO (17:59)
[2021-09-26] MEDS: lisinopriL 5 MG TABLET PO (21:12)
[2021-09-27] VITALS (21 sets, daily range): BP systolic 104–124; BP diastolic 57–75; PULSE 61–105; RESP 19–26; TEMP 36–37.1; O2SAT 90–100
--- NOTE | 2021-09-27 | ECHO_ITS ---
Patient Info Name: Lemuel Herrera Age: 65 years : 1955 Gender: Male Ht: 64 in Wt: 135 lbs BSA: 1.67 m2 HR: 100 bpm BP: 124 / 61 mmHg Heart Rhythm: Atrial Fibrillation Exam Date: 09/27/2021 9:13 AM Exam Location: [facility] Patient Status: Inpatient Admit Date: 09/25/2021 Staff Ordering Physician: Lamont Bentley MD Assistant Grocery: Sebastian Giron, DISHA, RT Attending Provider: Jodie Willis MD Referring Physician: Sheree DIANE; Exam Type: CA echo dop color flow w con Study Info Indications I50.9 - Heart failure, unspecified Complete two-dimensional, color flow and Doppler transthoracic echocardiogram is performed with contrast to opacify the left ventricle and to improve the deliniation of the left ventricle endocardial borders. Summary 1. Left ventricular chamber dimension is normal. 2. Left ventricular systolic function is normal, estimated at 55-60%. 3. Left atrial chamber dimension is moderately enlarged. 4. There is no mechanical aortic valve stenosis. 5. There is trace regurgitation of the mechanical aortic valve. 6. The mechanical aortic valve is not well visualized. However, leaflet excursion appears to be intact.. 7. The mechanical mitral valve leaflets are not well seen due to reverberation artifact. However, leaflet excursion appears to be intact. 8. There is no stenosis of the mechanical mitral valve. 9. There is trace regurgitation of the mechanical mitral valve but difficult to characterize further due to reverberation artifact. 10. There is mild to moderate tricuspid valve regurgitation. 11. Moderate pulmonary hypertension, estimated pulmonary arterial systolic pressure is 51 mmHg. Left Ventricle Left ventricular chamber dimension is normal. Left ventricular systolic function is normal, estimated at 55-60%. There is no increased left ventricular wall thickness. The left ventricular diastolic function is indeterminate. E/e' 24.00 is moderately elevated. Right Ventricle Right ventricular chamber dimension is normal. Right ventricular systolic function is normal. Left Atria Left atrial chamber dimension is moderately enlarged. Right Atria Right atrial chamber dimension is mildly enlarged. Aortic Valve The mechanical aortic valve is not well visualized. However, leaflet excursion appears to be intact.. There is no mechanical aortic valve stenosis. There is trace regurgitation of the mechanical aortic valve. Pulmonic Valve The pulmonic valve is not well visualized. Mitral Valve The mechanical mitral valve leaflets are not well seen due to reverberation artifact. However, leaflet excursion appears to be intact. There is no stenosis of the mechanical mitral valve. There is trace regurgitation of the mechanical mitral valve but difficult to characterize further due to reverberation artifact. Tricuspid Valve The tricuspid valve leaflets are normal. There is mild to moderate tricuspid valve regurgitation. Moderate pulmonary hypertension, estimated pulmonary arterial systolic pressure is 51 mmHg. Pericardium/Pleural The pericardium appears not well visualized. There is no pericardial effusion. Inferior Vena Cava Dilated inferior vena cava with >50% collapse upon inspiration consistent with elevated right atrial pressure, 10 mmHg. Aorta The aortic root size at the sinus of Valsalva is mildly dilated. There is mild aortic atherosclerosis. Left Ventricular Outflow Tract
[2021-09-27 02:06] LABS: Magnesium 1.9 mg/dL (1.6-2.3)
[2021-09-27] MEDS: IPRATROPIUM BR 0.02% INH SOLN 0.5 MG/2.5 ML VIAL INHALATION ×4 (03:01→20:33)
[2021-09-27] MEDS: LEVALBUTEROL NEB 1.25 MG/3 ML 0.63 MG INHALATION ×4 (03:01→20:33)
[2021-09-27 05:52] LABS: Hematocrit 32.3 % (42.0-52.0); Mean Corpuscular HGB Conc 34.1 g/dl (32-36); Mean Corpuscular Hemoglobin 30.6 pg (26-34); Mean Platelet Volume 8.8 fl (7.4-10.4); Platelet Count Result 209 k/mm3 (150-375); Red Blood Count 3.59 M/mm3 (4.6-6.20); Red Cell Distribution Width 12.7 % (11.5-14.5); White Blood Count 10.4 K/mm3 (4.5-10.0)
[2021-09-27] MEDS: methylPREDNISolone SOD SUCC 125 MG VIAL 60 MG IV PUSH ×3 (05:52→21:34)
[2021-09-27 06:06] LABS: Anion Gap 4 mmol/L (8-16); Blood Urea Nitrogen 15 mg/dL (9-20); Calcium 8.7 mg/dL (8.4-10.2); Carbon Dioxide 33 mmol/L (22-30); Chloride 97 mmol/L (98-107); Estimated CRCL calculation 102 ml/min; Estimated Glomerular Filt Rate > 60; Glucose 148 mg/dL (65-110); Potassium 3.1 mmol/L (3.4-5.0); Sodium 134 mmol/L (137-145)
[2021-09-27 06:10] LABS: INR 3.3; Prothrombin Time 32.8 Seconds (11.1-14.7)
[2021-09-27] MEDS: FLUTICASONE/SALMETEROL 115-21 MCG INHALER 1 PUFF 2 PUFF INHALATION ×2 (09:05→20:34)
[2021-09-27] MEDS: UMECLIDINIUM BROMIDE 62.5 MCG ELLIPTA 1 PUFF INHALATION (09:06)
[2021-09-27] MEDS: TAMSULOSIN HCL 0.4 MG CAPSULE PO (09:28)
[2021-09-27] MEDS: MAGNESIUM OXIDE 400 MG TABLET PO (09:28)
[2021-09-27] MEDS: predniSONE 20 MG TABLET 40 MG PO (09:28)
[2021-09-27] MEDS: FOLIC ACID 0.4 MG TABLET PO (09:29)
[2021-09-27] MEDS: METOPROLOL SUCCINATE EXT REL 100 MG TABCR PO (09:29)
[2021-09-27] MEDS: CYANOCOBALAMIN 500 MCG TABLET PO (09:29)
[2021-09-27] MEDS: FUROSEMIDE 20 MG TABLET PO ×2 (09:29→17:07)
--- NOTE | 2021-09-27 09:53 | PM.PNCARD ---
Progress Note: A&P Assessment and Plan (1) Atrial fibrillation with rapid ventricular response: Code(s): I48.91 - Unspecified atrial fibrillation <LAURO Mendez - Last Filed: 09/27/21 10:28> Status: Acute <LAURO Mendez - Last Filed: 09/27/21 10:28> Assessment and Plan: This apparently is a new diagnosis for him although taking metoprolol and diltiazem at home. It was recognized a couple of days ago whenever he was here at an ER visit. He is already on warfarin because of his mechanical mitral and aortic valve replacement. His acute rapid ventricular response was likely secondary to nebulizer treatments. He is currently very well rate controlled. His home dose of diltiazem and metoprolol have been resumed and rate remains well controlled. INR 3.3 today, will resume warfarin today at 2mg. <LAURO Mendez - Last Filed: 09/27/21 10:28> (2) COPD with acute exacerbation: Code(s): J44.1 - Chronic obstructive pulmonary disease with (acute) exacerbation <LAURO Mendez - Last Filed: 09/27/21 10:28> Status: Acute <LAURO Mendez - Last Filed: 09/27/21 10:28> Assessment and Plan: Steroids, nebs and antibiotics <LAURO Mendez - Last Filed: 09/27/21 10:28> (3) Supratherapeutic INR: Code(s): R79.1 - Abnormal coagulation profile <LAURO Mendez - Last Filed: 09/27/21 10:28> Status: Acute <LAURO Mednez - Last Filed: 09/27/21 10:28> Assessment and Plan: INR 3.3 today after admin of Vit K and holding warfarin. Warfarin can be resumed today at 2mg. 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 2D echocardiogram ordered and performed, results not yet available. <LAURO Mendez - Last Filed: 09/27/21 10:28> (5) Status post mitral valve replacement: Code(s): Z95.2 - Presence of prosthetic heart valve <LAURO Mendez - Last Filed: 09/27/21 10:28> Status: Acute <LAURO Mendez - Last Filed: 09/27/21 10:28> (6) Tobacco dependence: Code(s): F17.200 - Nicotine dependence, unspecified, uncomplicated <LAURO Mendez - Last Filed: 09/27/21 10:28> Status: Acute <LAURO Mendez - Last Filed: 09/27/21 10:28> Assessment and Plan: Ongoing despite significant COPD, history of throat cancer <LAURO Mendez - Last Filed: 09/27/21 10:28> (7) CHF (congestive heart failure): Code(s): I50.9 - Heart failure, unspecified <LAURO Mendez - Last Filed: 09/27/21 10:28> Status: Acute <LAURO Mendez - Last Filed: 09/27/21 10:28> Assessment and Plan: Probably acute systolic heart failure. Unknown details. Follows with Dr. Hutson. Will check a 2D echocardiogram with Doppler. Lower extremity edema has resolved at this point. Continue Furosemide 20 mg p.o. b.i.d., continue home dose lisinopril, metoprolol <LAURO Mendez - Last Filed: 09/27/21 10:28> Additional Plan Attending addendum: I agree with the above documentation and plan of care as outlined. Echocardiogram personally reviewed preserved LV systolic function, direct visualization of aortic and mitral valve limited due to reverberation artifact. Leaflet excursion appears to be preserved in gradients are not suggestive of significant prosthetic valve stenosis. Clinical correlation advised. <Bo Alicea MD - Last Filed: 09/27/21 12:29> Subjective Date/time seen: 09/27/21 09:53 Feeling better today, edema and shortness
[2021-09-27] MEDS: POTASSIUM CHLORIDE 20 MEQ TABLET 40 MEQ PO (12:30)
[2021-09-27] MEDS: WARFARIN (*PBKC) 2 MG TABLET PO (17:07)
--- NOTE | 2021-09-27 17:08 | PM.IMPN ---
Progress Note: A&P Assessment and Plan (1) COPD with acute exacerbation: Code(s): J44.1 - Chronic obstructive pulmonary disease with (acute) exacerbation Status: Acute Assessment and Plan: Admit to IMU Supplemental oxygen Systemic steroids Breathing treatment Will start levofloxacin Supportive care 09/26/2021 Interval history: patient with history of throat cancer, upon arrival patient was in atrial fibrillation with RVR this was a new diagnosis for the patient seen by blade worker suspect is was triggered by albuterol nebulizer, initially patient was placed on diltiazem drip cardiology DC the drip and resume patient home dose of diltiazem and metoprolol and rate is trending, patient with history of COPD unfortunately still smoking and was in exacerbation started the patient on methylprednisone and Xopenex, patient states feeling much better compared to when he arrived, patient with history mechanical mitral and aortic valve patient anticoagulated with warfarin, upon arrival patient INR was supratherapeutic warfarin was placed on hold, will continue to monitor and further recommendation to follow. 09/27/2021 Interval history: patient remains clinically stable is feeling much better compared to when he arrived his heart rate now trending down on his home dose of diltiazem and metoprolol, patient on warfarin for mechanical mitral and aortic valves upon arrival INR supratherapeutic 7 warfarin was on hold and today INR is 3.3 seen by cardiology will resume warfarin, will continue methylprednisone and Xopenex treatment,will continue present management and tapered methylprednisone it patient's symptoms improve. will have a PT OT evaluate the patient and further recommendation to follow. 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 - Paralysis of vocal cords and larynx, unilateral Status: Acute Assessment and Plan: Unchanged (6) Tobacco dependence: Code(s): F17.200 - Nicotine dependence, unspecified, uncomplicated Status: Acute Assessment and Plan: Nicotine patch as needed Subjective Date/time seen: 09/27/21 17:08 09/26/2021 Interval history: patient with history of throat cancer, upon arrival patient was in atrial fibrillation with RVR this was a new diagnosis for the patient seen by blade worker suspect is was triggered by albuterol nebulizer, initially patient was placed on diltiazem drip cardiology DC the drip and resume patient home dose of diltiazem and metoprolol and rate is trending, patient with history of COPD unfortunately still smoking and was in exacerbation started the patient on methylprednisone and Xopenex, patient states feeling much better compared to when he arrived, patient with history mechanical mitral and aortic valve patient anticoagulated with warfarin, upon arrival patient INR was supratherapeutic warfarin was placed on hold, will continue to monitor and further recommendation to follow. 09/27/2021 Interval history: patient remains clinically stable is feeling much better compared to when he arrived his heart rate now trending down on his home dose of diltiazem and metoprolol, patient on warfarin for mechanical mitral and aortic valves upon arrival INR supratherapeutic 7 warfarin was on hold and today INR is 3.3 seen by cardiology will resume warfarin, will continue methylprednisone and Xope
[2021-09-27] MEDS: lisinopriL 5 MG TABLET PO (20:08)
[2021-09-28] VITALS (25 sets, daily range): BP systolic 93–119; BP diastolic 53–66; PULSE 70–108; RESP 18–20; TEMP 36.3–36.9; O2SAT 87–98
[2021-09-28] MEDS: LEVALBUTEROL NEB 1.25 MG/3 ML 0.63 MG INHALATION ×4 (02:46→21:40)
[2021-09-28] MEDS: IPRATROPIUM BR 0.02% INH SOLN 0.5 MG/2.5 ML VIAL INHALATION ×4 (02:46→21:40)
[2021-09-28 05:01] LABS: Hematocrit 32.5 % (42.0-52.0); Hemoglobin 11.1 g/dL (14.0-18.0); Mean Corpuscular HGB Conc 34.2 g/dl (32-36); Mean Corpuscular Hemoglobin 30.8 pg (26-34); Mean Corpuscular Volume 90.3 fl (80-100); Mean Platelet Volume 8.8 fl (7.4-10.4); Platelet Count Result 209 k/mm3 (150-375); Red Cell Distribution Width 12.8 % (11.5-14.5); White Blood Count 10.3 K/mm3 (4.5-10.0)
[2021-09-28 05:11] LABS: INR 2.5; Prothrombin Time 26.1 Seconds (11.1-14.7)
[2021-09-28 05:13] LABS: Anion Gap 0 mmol/L (8-16); Blood Urea Nitrogen 19 mg/dL (9-20); Calcium 8.6 mg/dL (8.4-10.2); Carbon Dioxide 36 mmol/L (22-30); Chloride 96 mmol/L (98-107); Estimated CRCL calculation 86 ml/min; Estimated Glomerular Filt Rate > 60; Glucose 141 mg/dL (65-110); Potassium 3.2 mmol/L (3.4-5.0); Sodium 132 mmol/L (137-145)
[2021-09-28] MEDS: methylPREDNISolone SOD SUCC 125 MG VIAL 60 MG IV PUSH ×3 (06:37→21:04)
[2021-09-28] MEDS: POTASSIUM CHLORIDE 20 MEQ TABLET 40 MEQ PO (08:22)
--- NOTE | 2021-09-28 08:22 | PM.IMPN ---
Progress Note: A&P Assessment and Plan (1) COPD with acute exacerbation: Code(s): J44.1 - Chronic obstructive pulmonary disease with (acute) exacerbation Status: Acute Assessment and Plan: Patient presents with SOB and was wheezing throughout. He was admitted and started on Neb treatments and Solu-Medrol. He feels close to his baseline and remains on room air. He is not wheezing at this time but he just had a treatment. Will increase acitivity. Add abx given the productive nature of his cough. The blood tinged probably related to the Coumadin. Doubt PNA and CXR more consistent with pulmonary edema. Echo does show moderate pulmonary hypertension with a PA SP 51 mmHg. Home O2 evaluation to see if he needs O2 with exertion. Apnea link tonight. Change to oral steroids. (2) Atrial fibrillation with rapid ventricular response: Code(s): I48.91 - Unspecified atrial fibrillation Status: Acute Assessment and Plan: Patient was noted to have AFib/RVR on an ED visit on 09/09/21. When he returns this admission, he again noted to be in AFib with RVR. It is unclear when the AFib began. He was started on diltiazem drip. Cardiology consulted. Patient is already anticoagulated due to his mechanical heart valves. Echocardiogram showed EF of 55-60% with indeterminate diastolic function. Patient has been transitioned to oral diltiazem and metoprolol. Heart rate well controlled. Continue to monitor on telemetry. (3) Supratherapeutic INR: Code(s): R79.1 - Abnormal coagulation profile Status: Acute Assessment and Plan: Patient's INR was elevated on admission and climbed to 7.0. Patient received vitamin K 2.5 mg subQ once on 09/25/2021. INR remains therapeutic at 2.5 today. (4) Dysphagia: Code(s): R13.10 - Dysphagia, unspecified Status: Acute Assessment and Plan: Having difficulty swallowing was supposed to see his ENT in the outpatient setting. Will have speech therapy evaluate and treat. 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 (6) Tobacco dependence: Code(s): F17.200 - Nicotine dependence, unspecified, uncomplicated Status: Acute Assessment and Plan: Patient was educated about the benefits of smoking cessation. Nicotine patch as needed (7) Status post mitral valve replacement: Code(s): Z95.2 - Presence of prosthetic heart valve Status: Acute Assessment and Plan: Patient is status post mechanical mitral valve replacement. Echo shows at the valve was not well seen but that the leaflet excursion appears to be intact. Continue Coumadin to keep INR 2.5 or higher. (8) Status post aortic valve replacement: Code(s): Z95.2 - Presence of prosthetic heart valve Status: Acute Assessment and Plan: Patient is status post mechanical aortic valve. Echo also showing that the valve is not well visualized but the leaflet excursion appears to be intact. Continue Coumadin as above. (9) CHF (congestive heart failure): Code(s): I50.9 - Heart failure, unspecified Status: Acute Assessment and Plan: Patient with pulmonary edema by chest x-ray and a BNP 0. Gering symptoms related to his AFib with RVR. He was not treated with IV Lasix but continued on his home Lasix dose. He has had a negative fluid balance of almost 3 L. (10) DVT prophylaxis: Code(s): Z29.9 - Encounter for prophylactic measures, unspecified Status: Acute Assessment and Plan: INR therapeutic Subjective Date/time seen: 09/28/21 08:22 Interval history: 65yo male with hx of COPD, Ao/Mitral mechanical valve replacement and throat CA here for shortness of breath and found to have AFib/RVR. Assuming care. Chart reviewed. He continues to smoking but trying to quit. Still
[2021-09-28] MEDS: FUROSEMIDE 20 MG TABLET PO ×2 (08:24→16:35)
[2021-09-28] MEDS: CYANOCOBALAMIN 500 MCG TABLET PO (08:24)
[2021-09-28] MEDS: FOLIC ACID 0.4 MG TABLET PO (08:24)
[2021-09-28] MEDS: MAGNESIUM OXIDE 400 MG TABLET PO (08:25)
[2021-09-28] MEDS: METOPROLOL SUCCINATE EXT REL 100 MG TABCR PO (08:25)
[2021-09-28] MEDS: TAMSULOSIN HCL 0.4 MG CAPSULE PO (08:26)
[2021-09-28] MEDS: FLUTICASONE/SALMETEROL 115-21 MCG INHALER 1 PUFF 2 PUFF INHALATION ×2 (08:42→21:40)
[2021-09-28] MEDS: UMECLIDINIUM BROMIDE 62.5 MCG ELLIPTA 1 PUFF INHALATION (08:42)
--- NOTE | 2021-09-28 09:52 | PM.PNCARD ---
Progress Note: A&P Assessment and Plan (1) Atrial fibrillation with rapid ventricular response: Code(s): I48.91 - Unspecified atrial fibrillation Status: Acute Assessment and Plan: This apparently is a new diagnosis for him although taking metoprolol and diltiazem at home. It was recognized a couple of days ago whenever he was here at an ER visit. He is already on warfarin because of his mechanical mitral and aortic valve replacement. His acute rapid ventricular response was likely secondary to nebulizer treatments. He is currently very well rate controlled. His home dose of diltiazem and metoprolol have been resumed and rate remains well controlled. (2) COPD with acute exacerbation: Code(s): J44.1 - Chronic obstructive pulmonary disease with (acute) exacerbation Status: Acute Assessment and Plan: Steroids, nebs and antibiotics (3) Supratherapeutic INR: Code(s): R79.1 - Abnormal coagulation profile Status: Acute Assessment and Plan: INR 2.5 today, warfarin has been restarted. Resume home dose of 3mg daily (4) Status post aortic valve replacement: Code(s): Z95.2 - Presence of prosthetic heart valve Status: Acute Assessment and Plan: Mitral and aortic valve replacement several years ago secondary to endocarditis. Echo 09/27/2021 showed normal left ventricular systolic function with an EF of 55-60%. Trace regurgitation of mechanical aortic valve, no stenosis of mechanical mitral valve. Trace regurgitation of the mechanical mitral valve. Mild to moderate TR. Moderate pulmonary hypertension since estimated PASP 51 mmHg. (5) Status post mitral valve replacement: Code(s): Z95.2 - Presence of prosthetic heart valve Status: Acute (6) Tobacco dependence: Code(s): F17.200 - Nicotine dependence, unspecified, uncomplicated Status: Acute Assessment and Plan: Ongoing despite significant COPD, history of throat cancer (7) CHF (congestive heart failure): Code(s): I50.9 - Heart failure, unspecified Status: Acute Assessment and Plan: Probably acute systolic heart failure. Unknown details. Follows with Dr. Hutson. Will check a 2D echocardiogram with Doppler. Lower extremity edema has resolved at this point. Continue Furosemide 20 mg p.o. b.i.d., continue home dose lisinopril, metoprolol (8) NSVT (nonsustained ventricular tachycardia): Code(s): I47.2 - Ventricular tachycardia Status: Acute Assessment and Plan: 10 beat run noted on telemetry this a.m. Patient asymptomatic. K+ was 3.2, this was repleted. Check magnesium. Subjective Date/time seen: 09/28/21 09:52 Follow up visit 09/28/2021: Feels better today, noticing that he is coughing up less mucus. Still short of breath with exertion. Review of Systems Review of Systems: All systems reviewed & are unremarkable except as noted in HPI and below Constitutional: Constitutional: Denies fatigue, Denies headache(s) and Reports weakness Eyes: Eyes: Denies blurry vision ENT: Reports Normal hearing present, Denies headache(s) and Denies neck pain Cardiovascular: Cardiovascular: Reports chest pain, Denies leg edema, Reports dyspnea and Reports dyspnea on exertion Respiratory: Respiratory: Reports dyspnea and Reports dyspnea on exertion Gastrointestinal: Gastrointestinal: Denies abdominal pain Genitourinary: Genitourinary: Denies dysuria Musculoskeletal: Musculoskeletal: Denies back pain and Denies neck pain Integumentary/Breasts: Skin/Breast: Denies dry skin and Denies unusual bruising Neurologic: Reports Normal hearing present, Denies confusion, Denies headache(s) and Reports weakness Psychiatric: Psychiatric: Denies anxiety and Denies confusion Endocrine: Endocrine: Denies fatigue Hematologic/Lymphatic: Hematologic/Lymphatic: Denies easy bleeding Allergic/Immunologic: Allergic/Immunologic: Denies GI upset with certain food
--- NOTE | 2021-09-28 12:37 | HOMEO2EVAL ---
Evaluation was performed at [facility] Home Oxygen Evaluation RC: Home Oxygen (O2) Evaluation Start: 09/28/21 10:20 Freq: ONCE Status: Active Protocol: RPE Activity Type Activity Date Activity User E-Sign Co-Sign Detail Recorded Client Recorded Date Recorded By Document 09/28/21 10:45 [email or web address] 09/28/21 12:37 JOHN Document 09/28/21 10:50 [email or web address] 09/28/21 12:37 JOHN Document 09/28/21 10:52 [email or web address] 09/28/21 12:37 JOHN Document 09/28/21 10:53 JOHN [email or web address] 09/28/21 12:37 JOHN Document 09/28/21 11:00 JOHN [email or web address] 09/28/21 12:37 JOHN 09/28/21 09/28/21 09/28/21 10:45 10:50 10:52 Home O2 Evaluation Test Phase Resting Exercise Exercise Oxygen Delivery Room Air Room Air Nasal Cannula Oxygen Flow Rate (L/min) 1 Pulse Oximetry (90-100 %) 92 87 L 87 L Pulse Rate (60-100 beats/min) 78 103 H Home Oxygen Evaluation Comments Treatment Charges O2 Evaluation - Inpatient 09/28/21 09/28/21 10:53 11:00 Home O2 Evaluation Test Phase Exercise Resting Oxygen Delivery Nasal Cannula Room Air Oxygen Flow Rate (L/min) 2 Pulse Oximetry (90-100 %) 92 94 Pulse Rate (60-100 beats/min) 85 Home Oxygen Evaluation Comments Pt requires 2 l home O2 with activity Treatment Charges
--- NOTE | 2021-09-28 12:42 | PCRCNOTE ---
Home o2 eval done, needs 2 l with exertion. will arrange O2 set up with [facility], contact name Chuck [phone]. Will bring tank to room for transport home today
[2021-09-28] MEDS: MAGNESIUM HYDROXIDE SUSP 30 ML UDC PO (12:54)
[2021-09-28] MEDS: guaiFENesin 12 HR 600 MG TABCR PO ×2 (12:55→21:08)
--- NOTE | 2021-09-28 13:32 | PCSTNOTE ---
Please refer to the Bedside Swallow Evaluation in the EMR. Please note, silent aspiration cannot be ruled out at bedside.
--- NOTE | 2021-09-28 15:09 | PCSTNOTE ---
Addendum entered by Norma Schafer, [employer] 09/28/21 15:24: Already placed in chart earlier. Original Note: Please refer to the Bedside Swallow Evaluation in the EMR. Please note, silent aspiration cannot be ruled out at bedside.
[2021-09-28] MEDS: AMOXICILLIN/CLAVULANATE K 500-125 MG TAB 1 TABLET PO ×2 (16:35→21:08)
[2021-09-28] MEDS: WARFARIN (*PBKC) 3 MG TABLET PO (16:36)
[2021-09-28] MEDS: lisinopriL 5 MG TABLET PO (21:08)
--- NOTE | 2021-09-28 23:45 | PCRCNOTE ---
pt stated that he would like to discuss a sleep study with his primary doctor after he takes care of other health conditions.
[2021-09-29] VITALS (12 sets, daily range): BP systolic 109–138; BP diastolic 61–80; PULSE 72–102; RESP 18–20; TEMP 36.2–37.3; O2SAT 92–96
[2021-09-29] MEDS: IPRATROPIUM BR 0.02% INH SOLN 0.5 MG/2.5 ML VIAL INHALATION ×3 (02:08→14:07)
[2021-09-29] MEDS: LEVALBUTEROL NEB 1.25 MG/3 ML 0.63 MG INHALATION ×3 (02:08→14:07)
[2021-09-29 05:17] LABS: Hematocrit 32.8 % (42.0-52.0); Hemoglobin 11.2 g/dL (14.0-18.0); Mean Corpuscular HGB Conc 34.1 g/dl (32-36); Mean Corpuscular Hemoglobin 30.9 pg (26-34); Mean Corpuscular Volume 90.4 fl (80-100); Mean Platelet Volume 9.2 fl (7.4-10.4); Platelet Count Result 231 k/mm3 (150-375); Red Blood Count 3.63 M/mm3 (4.6-6.20); Red Cell Distribution Width 12.7 % (11.5-14.5); White Blood Count 12.5 K/mm3 (4.5-10.0)
[2021-09-29 05:27] LABS: INR 2.5
[2021-09-29 05:36] LABS: Anion Gap 2 mmol/L (8-16); Blood Urea Nitrogen 26 mg/dL (9-20); Calcium 8.6 mg/dL (8.4-10.2); Carbon Dioxide 38 mmol/L (22-30); Chloride 94 mmol/L (98-107); Estimated CRCL calculation 75 ml/min; Estimated Glomerular Filt Rate > 60; Glucose 137 mg/dL (65-110); Magnesium 2.3 mg/dL (1.6-2.3); Potassium 3.4 mmol/L (3.4-5.0); Sodium 134 mmol/L (137-145)
[2021-09-29] MEDS: AMOXICILLIN/CLAVULANATE K 500-125 MG TAB 1 TABLET PO ×2 (05:45→14:48)
[2021-09-29] MEDS: UMECLIDINIUM BROMIDE 62.5 MCG ELLIPTA 1 PUFF INHALATION (09:05)
[2021-09-29] MEDS: FLUTICASONE/SALMETEROL 115-21 MCG INHALER 1 PUFF 2 PUFF INHALATION (09:05)
[2021-09-29] MEDS: MAGNESIUM OXIDE 400 MG TABLET PO (09:23)
[2021-09-29] MEDS: guaiFENesin 12 HR 600 MG TABCR PO (09:23)
[2021-09-29] MEDS: TAMSULOSIN HCL 0.4 MG CAPSULE PO (09:23)
[2021-09-29] MEDS: METOPROLOL SUCCINATE EXT REL 100 MG TABCR PO (09:23)
[2021-09-29] MEDS: FUROSEMIDE 20 MG TABLET PO (09:24)
[2021-09-29] MEDS: MAGNESIUM HYDROXIDE SUSP 30 ML UDC PO (09:24)
[2021-09-29] MEDS: CYANOCOBALAMIN 500 MCG TABLET PO (09:24)
[2021-09-29] MEDS: predniSONE 20 MG TABLET 40 MG PO (09:24)
[2021-09-29] MEDS: FOLIC ACID 0.4 MG TABLET PO (09:24)
--- NOTE | 2021-09-29 12:40 | PM.DS ---
DS: Admitting Diagnosis Discharge Date 09/29/21 Admitting Diagnosis Shortness of breath DS: Discharge Diagnosis Discharge Diagnosis (1) COPD with acute exacerbation: Code(s): J44.1 - Chronic obstructive pulmonary disease with (acute) exacerbation Status: Acute Assessment and Plan: Patient presents with SOB and was wheezing throughout. He was admitted and started on Neb treatments and Solu-Medrol. He had clinical improvement and feels close to his baseline. He was transitioned to Prednisone. Abx added given the productive nature of his cough. He remains on room air at rest. He is not wheezing at time of discharge. Echo does show moderate pulmonary hypertension with a PA SP 51 mmHg. Apnea link ordered but patient refused test. Home O2 evaluation performed showing patient is room air at rest and 2L with activity. Will continue the Albuterol and patient was advised to use Albuterol as directed. 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 Coumadin probably contributing to the blood tinged componenet. He was seen by his doctor and a CTA was performed. He is unaware of the results but was told to follow up with ENT due to possible recurrence of his throat cancer. His appointment is tomorrow with ENT. he was encouraged to keep this appointment. (3) Atrial fibrillation with rapid ventricular response: Code(s): I48.91 - Unspecified atrial fibrillation Status: Acute Assessment and Plan: Patient was noted to have AFib/RVR on an ED visit on 09/09/21; patient refused admission at that time. When he returned this admission, he again noted to be in AFib with RVR. It is unclear when the AFib began. He does use Albuterol excessively and not as precribed. He was started on diltiazem drip. Cardiology consulted. Patient is already anticoagulated due to his mechanical heart valves. Echocardiogram showed EF of 55-60% with indeterminate diastolic function. Patient was transitioned to oral diltiazem and metoprolol added. Heart rate remained well controlled. (4) Supratherapeutic INR: Code(s): R79.1 - Abnormal coagulation profile Status: Acute Assessment and Plan: Patient's INR was elevated on admission and climbed to 7.0. Patient received vitamin K 2.5 mg subQ once on 09/25/2021. INR improved but more importantly remained therapeutic through out his hospital course. (5) Dysphagia: Code(s): R13.10 - Dysphagia, unspecified Status: Acute Assessment and Plan: Having difficulty swallowing and evaluated by speech therapy. Patient was found to be able to swallow safely. We followed the speech therapy instructions. 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 (7) Tobacco dependence: Code(s): F17.200 - Nicotine dependence, unspecified, uncomplicated Status: Acute Assessment and Plan: Patient was educated about the benefits of smoking cessation. (8) Status post mitral valve replacement: Code(s): Z95.2 - Presence of prosthetic heart valve Status: Acute Assessment and Plan: Patient is status post mechanical mitral valve replacement. Echo shows that the valve was not well seen but that the leaflet excursion appears to be intact. (9) Status post aortic valve replacement: Code(s): Z95.2 - Presence of prosthetic heart valve Status: Acute Assessment and Plan: Patient is status post mechanical aortic valve. Echo also showing that the valve is not well visualized but the leaflet excursion appears to be intact. (10) CHF (congestive heart failure): Code(s): I50.9 - Heart failure, unspecified Status: Ac
[2021-09-29 19:30] LABS: Hepatitis C RNA, Quant PCR 87800 IU/mL
--- NOTE | 2021-10-01 12:24 | PC.NURSE ---
HEP C Ab [place] [id number] Filipe tadeo. Faxed to Dr. Degroot
== END 2021-09-29 16:35 | disposition home or self-care (01) | DRG 191 ==
LOC: ANHED 23:31 → ANHIMU 09-26 00:48
PROVIDERS: Family Medicine; Internal Medicine Cardiovascular Disease; Nurse Practitioner; Admitting Provider Internal Medicine; Emergency Provider Emergency Medicine; PCP Family Medicine; Visit Provider Internal Medicine
DX: J44.1 Chronic obstructive pulmonary disease with (acute) exacerbation (principal); J96.11 Chronic respiratory failure with hypoxia; I47.2 Ventricular tachycardia; I48.91 Unspecified atrial fibrillation; I50.9 Heart failure, unspecified; Z20.822 Contact with and (suspected) exposure to COVID-19; R79.1 Abnormal coagulation profile; R13.10 Dysphagia, unspecified; J38.01 Paralysis of vocal cords and larynx, unilateral; Z85.89 Personal history of malignant neoplasm of other organs and systems; Z79.01 Long term (current) use of anticoagulants; Z87.891 Personal history of nicotine dependence; Z95.2 Presence of prosthetic heart valve
CPT/HCPCS: 36415; 36600; 71045; 80048; 80053; 82805; 83735; 83880; 84484; 85025; 85027; 85610; 85730; 86703; 86803; 87340; 87522; 92610; 93005; 94618; 94640; 96376; 97162; 97165; 99285; A9270; C8929; C9803; G0378; G0432; J2930; J3430; J7512; U0003; U0005